=== PATIENT | male | born 1975 | race Caucasian/White ===

== ENCOUNTER 2018-01-14 15:06 | Emergency (ER) | payer MEDICAID ==
[2018-01-14 15:10] VITALS: BP 150/102
--- NOTE | 2018-01-14 15:31 | EDPHY ---
H & P Stated Complaint: Wants a blood alcohol test to prove to family he hasn't been drinking Time Seen by Provider: 01/14/18 15:26 HPI/ROS: HPI: This is a 42-year-old male who presents with Chief Complaint: Request for blood alcohol test Location: psych Quality: Blood alcohol to Duration: Today Signs and Symptoms: No altered mentation, no homicidal ideation, no suicidal ideation, no hallucinations Timing: Chronic Severity: Mild Context: Patient reports that he has not drank alcohol in over a year, presents with request for blood alcohol test as his family believes that he is drinking alcohol again. Patient admits that he drinks non alcoholic beers in the evening. His father is visiting from the [facility] and saw him drinking the non alcoholic beer while driving the car home yesterday from [place], [place]. Patient reports that his parents want his son to live closer to them. Patient has been in a custody suresh with his son's mother for some time. Denies recreational drug use Modifying Factors: None Comment: ROS: see HPI Constitutional: No fever, no chills, no weight loss Eyes: No blurred vision Respiratory: No shortness of breath, no cough Cardiovascular: No chest pain Gastrointestinal: No nausea, no vomiting, no diarrhea Genitourinary: No dysuria Extremities: No myalgias Neurologic: No weakness, no numbness Skin: No rashes Hematologic: No bruising, no bleeding MEDICAL/SURGICAL/SOCIAL HISTORY: Medical history: Anxiety. Does not take any regular medications. Surgical history: Denies Social history: employed. Family history noncontributory. CONSTITUTIONAL: talkative middle aged male, awake and alert, no obvious distress HEENT: Atraumatic and normocephalic, PERRL, EOMI. Nares patent; no rhinorrhea; no nasal mucosal edema. Tympanic membranes clear. Oropharynx clear, no exudate and moist pink mucosa. Airway patent. No lymphadenopathy. No meningismus. Cardiovascular: Normal S1/S2, regular rate, regular rhythm, without murmur rub or gallop. PULMONARY/CHEST: Symmetrical and nontender. Clear to auscultation bilaterally. Good air movement. No accessory muscle usage. ABDOMEN: Soft, nondistended, nontender, no rebound, no guarding, no peritoneal signs, no masses or organomegaly. No CVAT. EXTREMITIES: 2/2 pulses, strength 5/5, no deformities, no clubbing, no cyanosis or edema. NEUROLOGICAL: no focal neuro deficits. GCS 15. SKIN: Warm and dry, no erythema. no rash. Good capillary refill. Source: Patient Exam Limitations: No limitations - Personal History Current Tetanus Diphtheria and Acellular Pertussis (TDAP): Yes - Medical/Surgical History Other PMH: anxiety - Social History Smoking Status: Never smoked Constitutional: Initial Vital Signs Heart Rate 96 01/14/18 15:07 Respiratory Rate 16 01/14/18 15:07 Blood Pressure 150/102 H 01/14/18 15:07 O2 Sat (%) 97 01/14/18 15:07 O2 Delivery Mode Room Air Allergies/Adverse Reactions: No Known Allergies Allergy (Unverified 01/14/18 15:10) Home Medications: Medication Instructions Recorded ALPRAZolam [Xanax 0.5 MG (*)] 0.5 mg PO 01/14/18 Dextroamphetamine ER [Dexedrine 15 15 mg PO 01/14/18 MG (*)] Medical Decision Making ED Course/Re-evaluation: Breathalyzer performed per request and was 0. No further interventions required. Does not meet M1 hold or Detainer criteria. Differential Diagnosis: Altered mental status including but not limited to hypoglycemia, infectious process, electrolyte abnormality, head injury and intoxicants. Departure - Departure Disposition: Home, Routine, Self-Care Clinical Impression: Feared condition not demonstrated Condition: Good Instructions: Generalized Anxiety Disorder (ED) Additional Instructions: Breathalyzer performed today around 3:30 p.m. In the emergency room and was 0; indicating no alcohol in the patient's system. Referrals: [facility],. [Clinic] - As per Instructions
== END 2018-01-14 15:50 | disposition home or self-care (01) ==
LOC: EEVIPCON 15:06
DX: Z71.1 Person with feared health complaint in whom no diagnosis is made (principal)

== ENCOUNTER 2018-10-27 16:21 | Emergency (ER) | payer MEDICAID ==
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
[2018-10-27 18:30] VITALS: BP 136/97
== END 2018-10-27 18:29 | disposition home or self-care (01) ==
DX: S83.92XA Sprain of unspecified site of left knee, initial encounter (principal); V00.322A Snow-skier colliding with stationary object, initial encounter; Y93.23 Activity, snow (alpine) (downhill) skiing, snowboarding, sledding, tobogganing and snow tubing; Y92.828 Other wilderness area as the place of occurrence of the external cause; Y99.9 Unspecified external cause status
CPT/HCPCS: L1830

== ENCOUNTER 2018-10-30 14:56 | Emergency (ER) | payer MEDICAID | END 2018-10-30 15:00 | disposition left against medical advice (07) ==